=== PATIENT | male | born 1960 | race Caucasian/White ===

== ENCOUNTER 2016-09-22 12:41 | Emergency (ER) | payer OTHER ==
--- NOTE | 2016-09-22 14:27 | DIAGNOSTIC IMAGING REPORT ---
PROCEDURE: CT ABDOMEN/PELVIS W/O CONTRAST INDICATION: Left flank pain. TECHNIQUE: Noncontrast axial images with sagittal and coronal reformations. COMPARISON: Compared to limited abdominal ultrasound on 12/16/2012. FINDINGS: ABDOMEN: There is mild left hydronephrosis and hydroureter secondary to a 5 mm calculus located in the left distal ureter (1.5 cm above the ureteral vesicle junction). There are 4 mm and 0.5 mm nonobstructing calculi in the lower pole left kidney. There is a 2 mm nonobstructing calculus in the lower pole right kidney. Right kidney and ureter are otherwise normal. There is a 2 cm periumbilical hernia which contains intra-abdominal lipomatous tissue. Gallbladder, liver, spleen, pancreas, and aorta are normal. Bowel pattern is normal, including appendix. There are mild to moderate degenerative changes of the lumbar spine. PELVIS: Mild sigmoid diverticulosis, but no evidence of diverticulitis. Prostate is of normal size (4.5 cm). structures are normal. IMPRESSION: 1. There is mild left hydronephrosis and hydroureter secondary to a 5 mm left distal ureteral calculus. 2. There are 4 mm and 0.5 mm nonobstructing calculi in the lower pole left kidney. 3. There is a 2 mm nonobstructing calculus in the lower pole right kidney. 4. There is 2 cm periumbilical hernia which contains intra-abdominal lipomatous tissue. 5. Mild sigmoid diverticulosis, but no evidence of diverticulitis. 6. Findings discussed with JERAMIE Herrera. All CT scans at this facility use dose modulation, iterative reconstruction, and/or weight-based dosing when appropriate to reduce radiation dose to as low as reasonably achievable.
--- NOTE | 2016-09-22 15:13 | ED CLINICAL REPORT ---
Clinical Report - Physicians/Mid Levels [facility] [address] [place] [address] 09/22/2016 12:42 Patient: BEN ROBERTS Time Seen: 13:09; initial patient contact, initial documentation, patient care assumed. Arrived- By private vehicle. Historian- patient. HISTORY OF PRESENT ILLNESS Chief Complaint: RIGHT FLANK PAIN and TESTICULAR PAIN and URINARY RETENTION. This started about 3 days ago and is still present but is improving. The problem is described as severe. It was abrupt in onset and has been waxing/waning. No penile discharge, discomfort with urination, urinary frequency, genital lesion or urgency of urination. No Chicas catheter problem, inguinal swelling or problem with the foreskin. The patient has had moderate testicular pain, involving the left testicle. He has been unable to void, and voiding small amounts. The patient has had unprotected intercourse with a single partner. Sexual history is noncontributory. 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 Similar symptoms previously: Chronically, milder. ( has had issues with urinary retention for approx x10 years or more, pain feels like when he had kidney stone). Recent medical care: Not recently seen/assessed. REVIEW OF SYSTEMS No fever, hematuria, abdominal pain, vomiting or diarrhea. No chest pain or difficulty breathing. He has had flank pain. All systems otherwise negative, except as recorded above. PAST HISTORY See nurses notes. ( PROBLEMS: Nephrolithiasis. Diabetes Mellitus. Hypertension. Immunizations. --13:02 Fransisco Gatica R.N. Cellulitis. --13:04 Fransisco Gatica R.N. ADDITIONAL SURGERIES: Vasectomy. --13:02 Fransisco Gatica R.N.). SOCIAL HISTORY Never smoker. No alcohol use or drug use. No recent travel. Is a local resident. FAMILY HISTORY Negative. ADDITIONAL NOTES The nursing notes have been reviewed with agreement regarding the chief complaint, HPI, ROS, PMH and patient medications and allergies. PHYSICAL EXAM Vital Signs: 09/22/2016 12:52 BP: 142/84. HR: 92. RR: 18. O2 saturation: 98%. Temp: 98.8 F. Pain level now: 05/26. Have been reviewed as normal and appear to be correct. Appearance: Alert. Oriented X3. No acute distress. ENT: Normal external inspection. Pharynx normal. Neck: Neck supple. CVS: Heart sounds normal. Respiratory: No respiratory distress. Breath sounds normal. Abdomen: Soft and nontender. Bowel sounds normal. No organomegaly. Small mass present in the periumbilical area (very small umbilical hernia present, chronic x 10 years plus). No tender or pulsatile mass present. No guarding present. Mildly obese. Mass present. Back: Normal external inspection. : Normal genitalia. Testes descended. (tree trimmer per rn fiorella, no obvious signs of swelling, but pt stating his L teste was bigger than normal). Skin: Skin warm and dry. Normal skin color. No rash. Normal skin turgor. Extremities: Extremities exhibit normal ROM. No lower extremity edema. Neuro: Oriented X 3. No motor deficit. No sensory deficit. LABS, X-RAYS, AND EKG Abdominal CT: . IMPRESSION: 1. There is mild left hydronephrosis and hydroureter secondary to a 5 mm left distal ureteral calculus. 2. There are 4 mm and 0.5 mm nonobstructing calculi in the lower pole left kidney. 3. There is a 2 mm nonobstructing calculus in the lower pole right kidney. 4. There is 2 cm periumbilical hernia which contains intra-abdominal lipomatous tissue. 5. Mild sigmoid diverticulosis, but no evidence of diverticulitis. 6. Findings discussed with JERAMIE Herrera. All CT scans at this facility use dose modulation, iterative reconstruction, and/or weight-based dosing when appropriate to reduce radiation dose to as low as reasonably achievable. Electronically Final signed by:Héctor Carlos MD 09/22/2016 2:22:09 PM. The study was interpreted by the radiologist and discussed with the radiologist. Interpretation time: 3675. Testicular Scan: Normal study. Normal. (per verbal report by Bloglovin Leonides). Interpretation time: 2660. Laboratory Tests: UA-Culture if indicated: (DELFIN: 09/22/2016 13:02) ( MsgRcvd 09/22/2016 13:35) Final results Test Result Flag Units (Reference) URINE COLOR ORANGE URINE APPEARANCE CLEAR URINE GLUCOSE TRACE (NEGATIVE) URINE BILIRUBIN Test not performed (NEGATIVE) UNABLE TO REPORT DUE TO URINE COLOR INTERFERENCE URINE KETONE Test not performed (NEGATIVE) UNABLE TO REPORT DUE TO URINE COLOR INTERFERENCE URINE SPECIFIC GRAVITY 1.025 (1.010-1.030) URINE PH Test not performed (5.0-8.0) UNABLE TO REPORT DUE TO URINE COLOR INTERFERENCE URINE PROTEIN Test not performed (NEGATIVE) UNABLE TO REPORT DUE TO URINE COLOR INTERFERENCE URINE UROBILINOGEN Test not performed EU/dL (0.2-1.0) UNABLE TO REPORT DUE TO URINE COLOR INTERFERENCE URINE NITRITE Test not performed (NEGATIVE) UNABLE TO REPORT DUE TO URINE COLOR INTERFERENCE URINE BLOOD 2+ (NEGATIVE) URINE LEUK ESTERASE NEGATIVE (NEGATIVE) URINE RBC 10-25 rbc/hpf (0-1) URINE WBC 3-5 wbc/hpf (0-1) URINE EPITHELIAL CELLS 0-1 EPI/hpf (0-5) URINE BACTERIA NONE SEEN (NONE SEEN) URINE COMMENT CULT NOT INDICATED URINE CULTURES ARE SET-UP BASED ON THE FOLLOWING CRITERIA:POSITIVE NITRITEPOSITIVE LEUKOCYTE ESTERASEGREATER THAN 10 WHITE BLOOD CELLSMODERATE (2+) OR GREATER BACTERIA CBC w Diff: (DELFIN: 09/22/2016 13:40) ( LagRcvd 09/22/2016 14:05) Final results Test Result Flag Units (Reference) WHITE BLOOD COUNT 9.6 K/uL (4.5-11.5) RED BLOOD COUNT 4.43 L M/uL (4.50-5.90) HEMOGLOBIN 13.4 L gm/dL (13.5-17.5) HEMATOCRIT 39.6 L % (41.0-53.0) MEAN CELL VOLUME 89 fL (80-100) MEAN CORPUSCULAR HGB 30 pg (26-34) MEAN CORPUSCULAR HGB CONC 34 g/dL (31-37) RED CELL DISTRIBUTION WIDTH 12.8 % (11.6-14.8) PLATELET COUNT 202 K/uL (150-400) NEUTROPHIL % 72.9 % (50-75) LYMPH % 17.2 L % (25-40) MONO % 7.4 % (3-14) EOSINOPHIL % 2.3 % (0-4) BASOPHIL % 0.2 % (0-2) CMP: (DELFIN: 09/22/2016 13:40) ( MsgRcvd 09/22/2016 14:07) Final results Test Result Flag Units (Reference) GLUCOSE 188 H mg/dL (70-110) BUN 16 mg/dL (7-18) CREATININE 0.9 mg/dL (0.6-1.3) Estimated GFR >60 mL/min Estimated GFR- >60 mL/min Note: Persistent reduction over 3 months in eGFR<60 mL/min/1.73 m2 defines CKD. Patients with eGFR values>=60 mL/min/1.73 m2 may also have CKD if evidence ofpersistent proteinuria. Additional information may be foundat www.[email or web address].org. SODIUM 140 mmol/L (136-145) POTASSIUM 3.5 mmol/L (3.5-5.1) CHLORIDE 102 mmol/L (98-107) CARBON DIOXIDE 27 mmol/L (21-32) CALCIUM 9.0 mg/dL (8.5-10.1) TOTAL PROTEIN 8.2 g/dL (6.4-8.2) ALBUMIN 3.8 g/dL (3.3-5.0) BILIRUBIN, TOTAL 0.5 mg/dL (0.0-1.0) ALKALINE PHOSPHATASE 97 U/L (46-116) AST (SGOT) 22 U/L (15-37) ALT (SGPT) 34 U/L (12-78) . PROGRESS AND PROCEDURES Course of Care: nurse reporting bladder scan only showed approx 70ml of urine. 09/22/2016 13:49 BP: 120/80. HR: 86. RR: 14. O2 saturation: 97%. Temp: 98.4 F. Pain level now: 05/26. Vital Signs: have been reviewed as normal and appear to be correct. Patient and spouse counseled in person regarding the patient's stable condition, test results and diagnosis. 1450. Differential Diagnosis: I considered bacterial epididymitis, orchitis, scrotal abscess, prostatitis, urinary tract infection, inflammatory etiology, hydrocele, testicular torsion and ureterolithiasis etiology as a possible cause of testicular pain in this patient. This is a partial list of diagnoses considered. Above considerations are based on history, physical exam, reassessment, laboratory data and other information. Differential diagnosis was discussed with patient and patient's spouse. Disposition: Discharged home in good and improved condition (15:13). Condition: good and stable. CLINICAL IMPRESSION Ureterolithiasis (multiple stones) in the right kidney and left ureter and kidney with renal colic, hydronephrosis, urinary tract infection and hematuria. No acute pyelonephritis. Acute urinary tract infection with cystitis. No pyelonephritis or hematuria. Not associated with indwelling catheter or obstruction. INSTRUCTIONS Drink plenty of fluids for the next 24 hours until better. (strain all urine). Warnings: GENERAL WARNINGS: Return or contact your physician immediately if your condition worsens or changes unexpectedly, if not improving as expected, or if other problems arise. Specifically return if problem worsens. Prescription Medications: Zofran 4 mg: Take 1 orally every six hours as needed for nausea/vomiting. Dispense ten (10). No refills. Substitution is permissible. Cipro 500 mg: take 1 tab orally every 12 hours for 10 days. Dispense twenty (20). No refills. Substitution is permissible. [place] 5 mg / 325 mg tablets: take 1 to 2 orally every 6 hours as needed for pain. Dispense fifteen (15). No refills. Substitution is permissible. Toradol 10 mg tablets: Take 1 tablet orally every 6 hours as needed. Dispense fifteen (15). No refills. Substitution is permissible. Flomax 0.4 mg: take 1 orally every 24 hours. Dispense fifteen (15). No refills. Substitution is permissible. Follow-up: Follow up with your doctor Roman in about two days even if well. Call for an appointment. Summary of care provided to patient. Understanding of the discharge instructions verbalized by patient. Follow-up with: Virgil Moya MD, Urology, , [address], , [facility] [address]; Tristan Sams MD, Urology, , [address] [facility] [address] Follow up in about two days as needed. Call for an appointment. Summary of care provided to patient. (Electronically signed by Marilin Mclean A.R.N.P. 09/22/2016 17:18)
--- NOTE | 2016-09-22 15:13 | ED NURSING NOTES ---
Clinical Report - Nurses [facility] [address] [place] [address] 09/22/2016 12:42 Patient: BEN ROBERTS TRIAGE Triage time 12:52 Sep 22 2016. Acuity: LEVEL 3. Chief Complaint: TESTICULAR PAIN and (Urinary Retention). Alert. LEONIDES COMA SCORE: Leonides Coma Scale: 15- eyes open spontaneously (4); best verbal response- oriented x 4 (5); best motor response- obeys commands (6). --13:06 Fransisco Gatica R.N. 12:52 09/22/16. BP: 142/84. HR: 92. RR: 18. O2 saturation: 98%. Temp: 98.8 F (oral). Pain level now: 05/26. --13:06 Fransisco Gatica R.N. Weight: 115.6 kg stated. Height/Length: 73 inches Per Patient. BMI: 33.6. --12:58 Fransisco Gatica R.N. Medications Azo-Standard Oral 2 tablets, 3x a day. --12:53 Fransisco Gatica R.N. Vicodin Oral 5 mg x 2 (Left over from a tooth extraction). --12:55 Fransisco Gatica R.N. Allergies No Known Drug Allergy. --12:54 Fransisco Gatica R.N. Medication/allergy information source: the patient and patient's spouse. --13:06 Fransisco Gatica R.N. History Arrived by private vehicle. Historian: patient. Accompanied by family. Primary physician (Roman). ( (R) Flank Pain associated with urinary retention and slight testicular pain.). Onset. (about 3 days ago, but the urinary retention has been going on for months.). Treatment INVENTORY CLERK: (AZo). PAST MEDICAL HX: Immunizations: status is unknown. SOCIAL HX: Never smoker. No alcohol use or drug use. No infectious disease exposure. ABUSE ASSESSMENT: No report of abuse. FALL RISK ASSESSMENT: Fall risk assessment completed. No fall risk identified. NUTRITIONAL RISK ASSESSMENT: The nutritional risk assessment revealed no deficiencies. FUNCTIONAL ASSESSMENT: Functional assessment: no impairments noted. LEARNING NEEDS ASSESSMENT: The learning needs assessment revealed no barriers. SKIN INTEGRITY ASSESSMENT: Skin integrity risk assessment completed. No skin integrity risk identified. --13:06 Fransisco Gatica R.N. PROBLEMS: Nephrolithiasis. Diabetes Mellitus. Hypertension. Immunizations. --13:02 Fransisco Gatica R.N. Cellulitis. --13:04 Fransisco Gatica R.N. ADDITIONAL SURGERIES: Vasectomy. --13:02 Fransisco Gatica R.N. Interventions ID band on patient. To treatment room. --13:06 Fransisco Gatica R.N. PHYSICAL ASSESSMENT Ambulatory to room. GENERAL / NEURO / PSYCH: Alert. Oriented X 4. Appears in pain. HEENT: Mucous membranes are pink. RESPIRATORY: Respirations not labored. CVS: Normal heart rate and rhythm. GI / : Abdomen soft. Bowel sounds within normal limits. SKIN: Skin is warm and dry. --13:07 Fransisco Gatica R.N. NURSING PROGRESS NOTES Oxygen administered. Monitoring of patient in place. Patient gowned. Reassurance given to the patient. Patient identifiers checked. Call light placed in reach. Side rails up x 1. Bed placed in lowest position. Brakes of bed on. Patient ready for evaluation- chart flagged and ED physician notified. --13:08 Fransisco Gatica R.N. 13:08 09/22/16. Patient ID band checked for patient name, birthdate and medical record number: patient confirmed. Instructions provided to collect clean catch urine and patient verbalized understanding. Clean catch urine collected with return of orange-colored clear urine; odor is normal; sample sent to lab for urinalysis and culture. Specimen labeled in the presence of the patient. --13:08 Fransisco Gatica R.N. 13:13 09/22/16. ( Blood Sugar 171). --13:13 Maicol Lord R.N. 13:14 09/22/16. Tape Rules Printing Machine Operator provided for the genital exam by the physician. --13:14 Maicol Lord R.N. 13:33 09/22/2016 Site #1 started via IV in the right antecubital space with an 20g angiocath; one attempt. Blood drawn: rainbow set. Labeled in the presence of the patient and sent to the lab. Saline lock flushed with 10 mL saline (placed by Kavitha CARMONA). --13:39 Jazlyn Lim R.N. 13:40 09/22/2016 Started bag #1 1000 mL IV Fluids IV NS (Saline); at 1000 mL/hr over 1 hour(s) via site #1 via dial-a-flow. Allergies verified and confirmed 5 rights. IV patency established. IV site checked: no pain, redness, or swelling. IV flushed thoroughly pre- and post-medication administration. --13:40 Kavitha Melton R.N. ( urine bladder scan multiple areas of abdomen and pelvis region, 71mls). --13:40 Jazlyn Lim R.N. 15:17 09/22/2016 IV Fluids IV NS Discontinued: bag #1 infused. Total amount infused: 1000 mL. IV patency established. IV site checked: no pain, redness, or swelling. IV flushed thoroughly. --15:27 Maicol Lord R.N. DISPOSITION / DISCHARGE No learning barriers present. Discharge instructions provided and reviewed with the patient. Reviewed medication(s) side effects, dosing and course information. Prescription(s) given to the patient. Work note given. Patient verbalized understanding. Written instructions provided in Fijian. The patient was discharged by the nurse practitioner. He was discharged home. He left the Emergency Department ambulatory and via private vehicle. Patient driving. ( pt dc home only by this RN, pt speaks full sentences, clears oral secretions, given rx and f/u.). --13:51 Jazlyn Lim R.N. 13:49 09/22/16. BP: 120/80. HR: 86. RR: 14. O2 saturation: 97%. Temp: 98.4 F. Pain level now: 05/26. --13:51 Jazlyn Lim R.N. Departure time: 1349. --13:52 Jazlyn Lim R.N. 15:32 09/22/2016 Site #1 removed upon discharge. Catheter intact. --15:32 Maicol Lord R.N. 15:33 05/09/17. Condition at departure: improved. The goals identified in the patient's plan of care were met. ( Pt educated about how to strain to urine and provide stone to PCP and also follow up with urology/PCP). No learning barriers present. Discharge instructions provided and reviewed with the patient and spouse. Reviewed warnings. Reviewed medication(s). Treatments reviewed. Patient and spouse verbalized understanding. Written instructions provided in Fijian. The patient was discharged by the nurse practitioner. He was discharged home and accompanied by family. He left the Emergency Department ambulatory and via private vehicle. Family member driving. FALL RISK ASSESSMENT: Fall risk assessment completed. No fall risk identified. --15:33 Maicol Lord R.N. 15:32 09/22/16. BP: 118/74. HR: 81. RR: 15. O2 saturation: 100% on room air. Temp: 97.9 F (oral). --15:33 Maicol Lord R.N. 15:33 09/22/16. Departure time: 15:33. --15:33 Maicol Lord R.N. Locked/Released at 09/22/2016 15:50 by Maicol Lord R.N.
--- NOTE | 2016-09-22 15:13 | ED ORDER SUMMARY ---
..... Patient: BEN ROBERTS OrderSheet [facility] VisitID: [id number] [address] [place] [address] 56y, M Registration Date/Time: 09/22/2016 ORDER SHEET Weight: 115.6 kg (stated) Allergies: No Known Drug Allergy GENERAL ORDERS: UA-Culture if indicated Urgent (13:07 09/22/2016 JRomanelli R.N. verbal order read back to HBivens A.R.N.P.) (13:07 JRomanelli R.N.) POC Glucose (13:14 09/22/2016 JBoardley R.N. per protocol) (13:14 JBoardley R.N.) CT Abd/Pel wo Cont Urgent (13:18 09/22/2016 HBivens A.R.N.P.) (Ack 13:44 KHoerner) (13:57 KHoerner) US Scrotum/Testicular Urgent (13:18 09/22/2016 HBivens A.R.N.P.) (Ack 13:44 KHoerner) (15:27 JBoardley R.N.) CBC w Diff Urgent (13:18 09/22/2016 HBivens A.R.N.P.) (13:39 EHassan R.N.) CMP Urgent (13:18 09/22/2016 HBivens A.R.N.P.) (13:39 EHassan R.N.) Bladder Scan (13:23 09/22/2016 HBivens A.R.N.P.) (Ack 13:24 JRomanelli R.N.) (15:27 JBoardley R.N.) MEDICATION ORDERS: IV FLUIDS: IV NS : initial bolus 1000 mL (1000 mL/hr), then none - (NOW) (13:18 09/22/2016 HBivens A.R.N.P.) (Ack 13:24 JRomanelli R.N.) (13:40 EHassan R.N.) IV Saline Lock (13:18 09/22/2016 HBivens A.R.N.P.) (Ack 13:24 JRomanelli R.N.) (13:40 Gabriel Abrams) ORDER SHEET NOTES: [Electronically signed by Maicol Lord R.N. (15:50 09/22/2016)] [Electronically signed by Marilin Mclean (17:18 09/22/2016)] [Electronically locked/signed by Maicol Lord R.N. (15:50 09/22/2016)]
--- NOTE | 2016-09-22 15:13 | ED CLINICAL REPORT ---
Clinical Report - Physicians/Mid Levels [facility] [address] [place] [address] 09/22/2016 12:42 Patient: BEN ROBERTS Time Seen: 13:09; initial patient contact, initial documentation, patient care assumed. Arrived- By private vehicle. Historian- patient. HISTORY OF PRESENT ILLNESS Chief Complaint: RIGHT FLANK PAIN and TESTICULAR PAIN and URINARY RETENTION. This started about 3 days ago and is still present but is improving. The problem is described as severe. It was abrupt in onset and has been waxing/waning. No penile discharge, discomfort with urination, urinary frequency, genital lesion or urgency of urination. No [place] catheter problem, inguinal swelling or problem with the foreskin. The patient has had moderate testicular pain, involving the left testicle. He has been unable to void, and voiding small amounts. The patient has had unprotected intercourse with a single partner. Sexual history is noncontributory. (pain better now, took x2 [place] [employer]). Similar symptoms previously: Chronically, milder. ( has had issues with urinary retention for approx x10 years or more, pain feels like when he had kidney stone). Recent medical care: Not recently seen/assessed. REVIEW OF SYSTEMS No fever, hematuria, abdominal pain, vomiting or diarrhea. No chest pain or difficulty breathing. He has had flank pain. All systems otherwise negative, except as recorded above. PAST HISTORY See nurses notes. ( PROBLEMS: Nephrolithiasis. Diabetes Mellitus. Hypertension. Immunizations. --13:02 Fransisco Gatica R.N. Cellulitis. --13:04 Fransisco Gatica R.N. ADDITIONAL SURGERIES: Vasectomy. --13:02 Fransisco Gatica R.N.). SOCIAL HISTORY Never smoker. No alcohol use or drug use. No recent travel. Is a local resident. FAMILY HISTORY Negative. ADDITIONAL NOTES The nursing notes have been reviewed with agreement regarding the chief complaint, HPI, ROS, PMH and patient medications and allergies. PHYSICAL EXAM Vital Signs: 09/22/2016 12:52 BP: 142/84. HR: 92. RR: 18. O2 saturation: 98%. Temp: 98.8 F. Pain level now: 05/26. Have been reviewed as normal and appear to be correct. Appearance: Alert. Oriented X3. No acute distress. ENT: Normal external inspection. Pharynx normal. Neck: Neck supple. CVS: Heart sounds normal. Respiratory: No respiratory distress. Breath sounds normal. Abdomen: Soft and nontender. Bowel sounds normal. No organomegaly. Small mass present in the periumbilical area (very small umbilical hernia present, chronic x 10 years plus). No tender or pulsatile mass present. No guarding present. Mildly obese. Mass present. Back: Normal external inspection. : Normal genitalia. Testes descended. (test baker per rn fiorella, no obvious signs of swelling, but pt stating his L teste was bigger than normal). Skin: Skin warm and dry. Normal skin color. No rash. Normal skin turgor. Extremities: Extremities exhibit normal ROM. No lower extremity edema. Neuro: Oriented X 3. No motor deficit. No sensory deficit. LABS, X-RAYS, AND EKG Abdominal CT: . IMPRESSION: 1. There is mild left hydronephrosis and hydroureter secondary to a 5 mm left distal ureteral calculus. 2. There are 4 mm and 0.5 mm nonobstructing calculi in the lower pole left kidney. 3. There is a 2 mm nonobstructing calculus in the lower pole right kidney. 4. There is 2 cm periumbilical hernia which contains intra-abdominal lipomatous tissue. 5. Mild sigmoid diverticulosis, but no evidence of diverticulitis. 6. Findings discussed with JERAMIE Herrera. All CT scans at this facility use dose modulation, iterative reconstruction, and/or weight-based dosing when appropriate to reduce radiation dose to as low as reasonably achievable. Electronically Final signed by:Héctor Carlos MD 09/22/2016 2:22:09 PM. The study was interpreted by the radiologist and discussed with the radiologist. Interpretation time: 6525. Testicular Scan: Normal study. Normal. (per verbal report by [facility]). Interpretation time: 5150. Laboratory Tests: UA-Culture if indicated: (DELFIN: 09/22/2016 13:02) ( MsgRcvd 09/22/2016 13:35) Final results Test Result Flag Units (Reference) URINE COLOR ORANGE URINE APPEARANCE CLEAR URINE GLUCOSE TRACE (NEGATIVE) URINE BILIRUBIN Test not performed (NEGATIVE) UNABLE TO REPORT DUE TO URINE COLOR INTERFERENCE URINE KETONE Test not performed (NEGATIVE) UNABLE TO REPORT DUE TO URINE COLOR INTERFERENCE URINE SPECIFIC GRAVITY 1.025 (1.010-1.030) URINE PH Test not performed (5.0-8.0) UNABLE TO REPORT DUE TO URINE COLOR INTERFERENCE URINE PROTEIN Test not performed (NEGATIVE) UNABLE TO REPORT DUE TO URINE COLOR INTERFERENCE URINE UROBILINOGEN Test not performed EU/dL (0.2-1.0) UNABLE TO REPORT DUE TO URINE COLOR INTERFERENCE URINE NITRITE Test not performed (NEGATIVE) UNABLE TO REPORT DUE TO URINE COLOR INTERFERENCE URINE BLOOD 2+ (NEGATIVE) URINE LEUK ESTERASE NEGATIVE (NEGATIVE) URINE RBC 10-25 rbc/hpf (0-1) URINE WBC 3-5 wbc/hpf (0-1) URINE EPITHELIAL CELLS 0-1 EPI/hpf (0-5) URINE BACTERIA NONE SEEN (NONE SEEN) URINE COMMENT CULT NOT INDICATED URINE CULTURES ARE SET-UP BASED ON THE FOLLOWING CRITERIA:POSITIVE NITRITEPOSITIVE LEUKOCYTE ESTERASEGREATER THAN 10 WHITE BLOOD CELLSMODERATE (2+) OR GREATER BACTERIA CBC w Diff: (DELFIN: 09/22/2016 13:40) ( NmgRcvd 09/22/2016 14:05) Final results Test Result Flag Units (Reference) WHITE BLOOD COUNT 9.6 K/uL (4.5-11.5) RED BLOOD COUNT 4.43 L M/uL (4.50-5.90) HEMOGLOBIN 13.4 L gm/dL (13.5-17.5) HEMATOCRIT 39.6 L % (41.0-53.0) MEAN CELL VOLUME 89 fL (80-100) MEAN CORPUSCULAR HGB 30 pg (26-34) MEAN CORPUSCULAR HGB CONC 34 g/dL (31-37) RED CELL DISTRIBUTION WIDTH 12.8 % (11.6-14.8) PLATELET COUNT 202 K/uL (150-400) NEUTROPHIL % 72.9 % (50-75) LYMPH % 17.2 L % (25-40) MONO % 7.4 % (3-14) EOSINOPHIL % 2.3 % (0-4) BASOPHIL % 0.2 % (0-2) CMP: (DELFIN: 09/22/2016 13:40) ( MsgRcvd 09/22/2016 14:07) Final results Test Result Flag Units (Reference) GLUCOSE 188 H mg/dL (70-110) BUN 16 mg/dL (7-18) CREATININE 0.9 mg/dL (0.6-1.3) Estimated GFR >60 mL/min Estimated GFR- >60 mL/min Note: Persistent reduction over 3 months in eGFR<60 mL/min/1.73 m2 defines CKD. Patients with eGFR values>=60 mL/min/1.73 m2 may also have CKD if evidence ofpersistent proteinuria. Additional information may be foundat www.kidney.org. SODIUM 140 mmol/L (136-145) POTASSIUM 3.5 mmol/L (3.5-5.1) CHLORIDE 102 mmol/L (98-107) CARBON DIOXIDE 27 mmol/L (21-32) CALCIUM 9.0 mg/dL (8.5-10.1) TOTAL PROTEIN 8.2 g/dL (6.4-8.2) ALBUMIN 3.8 g/dL (3.3-5.0) BILIRUBIN, TOTAL 0.5 mg/dL (0.0-1.0) ALKALINE PHOSPHATASE 97 U/L (46-116) AST (SGOT) 22 U/L (15-37) ALT (SGPT) 34 U/L (12-78) . PROGRESS AND PROCEDURES Course of Care: nurse reporting bladder scan only showed approx 70ml of urine. 09/22/2016 13:49 BP: 120/80. HR: 86. RR: 14. O2 saturation: 97%. Temp: 98.4 F. Pain level now: 05/26. Vital Signs: have been reviewed as normal and appear to be correct. Patient and spouse counseled in person regarding the patient's stable condition, test results and diagnosis. 1450. Differential Diagnosis: I considered bacterial epididymitis, orchitis, scrotal abscess, prostatitis, urinary tract infection, inflammatory etiology, hydrocele, testicular torsion and ureterolithiasis etiology as a possible cause of testicular pain in this patient. This is a partial list of diagnoses considered. Above considerations are based on history, physical exam, reassessment, laboratory data and other information. Differential diagnosis was discussed with patient and patient's spouse. Disposition: Discharged home in good and improved condition (15:13). Condition: good and stable. CLINICAL IMPRESSION Ureterolithiasis (multiple stones) in the right kidney and left ureter and kidney with renal colic, hydronephrosis, urinary tract infection and hematuria. No acute pyelonephritis. Acute urinary tract infection with cystitis. No pyelonephritis or hematuria. Not associated with indwelling catheter or obstruction. INSTRUCTIONS Drink plenty of fluids for the next 24 hours until better. (strain all urine). Warnings: GENERAL WARNINGS: Return or contact your physician immediately if your condition worsens or changes unexpectedly, if not improving as expected, or if other problems arise. Specifically return if problem worsens. Prescription Medications: Zofran 4 mg: Take 1 orally every six hours as needed for nausea/vomiting. Dispense ten (10). No refills. Substitution is permissible. Cipro 500 mg: take 1 tab orally every 12 hours for 10 days. Dispense twenty (20). No refills. Substitution is permissible. [place] 5 mg / 325 mg tablets: take 1 to 2 orally every 6 hours as needed for pain. Dispense fifteen (15). No refills. Substitution is permissible. Toradol 10 mg tablets: Take 1 tablet orally every 6 hours as needed. Dispense fifteen (15). No refills. Substitution is permissible. Flomax 0.4 mg: take 1 orally every 24 hours. Dispense fifteen (15). No refills. Substitution is permissible. Follow-up: Follow up with your doctor Roman in about two days even if well. Call for an appointment. Summary of care provided to patient. Understanding of the discharge instructions verbalized by patient. Follow-up with: Virgil Moya MD, Urology, , [address], , [facility] [address]; Tristan Sams MD, Urology, , [address] [facility] [address] Follow up in about two days as needed. Call for an appointment. Summary of care provided to patient. (Electronically signed by Marilin Mclean A.R.N.P. 09/22/2016 17:18)
--- NOTE | 2016-09-22 15:13 | ED ORDER SUMMARY ---
..... Patient: BEN ROBERTS OrderSheet [facility] VisitID: [id number] [address] [place] [address] 56y, M Registration Date/Time: 09/22/2016 ORDER SHEET Weight: 115.6 kg (stated) Allergies: No Known Drug Allergy GENERAL ORDERS: UA-Culture if indicated Urgent (13:07 09/22/2016 JRomanelli R.N. verbal order read back to HBivens A.R.N.P.) (13:07 JRomanelli R.N.) POC Glucose (13:14 09/22/2016 JBoardley R.N. per protocol) (13:14 JBoardley R.N.) CT Abd/Pel wo Cont Urgent (13:18 09/22/2016 HBivens A.R.N.P.) (Ack 13:44 KHoerner) (13:57 KHoerner) US Scrotum/Testicular Urgent (13:18 09/22/2016 HBivens A.R.N.P.) (Ack 13:44 KHoerner) (15:27 JBoardley R.N.) CBC w Diff Urgent (13:18 09/22/2016 HBivens A.R.N.P.) (13:39 EHassan R.N.) CMP Urgent (13:18 09/22/2016 HBivens A.R.N.P.) (13:39 EHassan R.N.) Bladder Scan (13:23 09/22/2016 HBivens A.R.N.P.) (Ack 13:24 JRomanelli R.N.) (15:27 JBoardley R.N.) MEDICATION ORDERS: IV FLUIDS: IV NS : initial bolus 1000 mL (1000 mL/hr), then none - (NOW) (13:18 09/22/2016 HBivens A.R.N.P.) (Ack 13:24 JRomanelli R.N.) (13:40 EHassan R.N.) IV Saline Lock (13:18 09/22/2016 HBivens A.R.N.P.) (Ack 13:24 JRomanelli R.N.) (13:40 Gabriel Abrams) ORDER SHEET NOTES: [Electronically signed by Maicol Lord R.N. (15:50 09/22/2016)] [Electronically signed by Marilin Mclean (17:18 09/22/2016)] [Electronically locked/signed by Maicol Lord R.N. (15:50 09/22/2016)]
--- NOTE | 2016-09-22 15:54 | DIAGNOSTIC IMAGING REPORT ---
PROCEDURE: US SCROTUM/TESTICLE INDICATION: SCROTAL SWELLING TECHNIQUE: Rebolledo scale and color Doppler sonographic images through the scrotum were obtained. COMPARISON: None. FINDINGS: RIGHT TESTICLE: Measures 4.5 x 3.2 x 2.6 cm. Normal echogenicity and vascularity. Small hydrocele. Normal epididymis. LEFT TESTICLE: Measures 4.3 x 3.1 x 2.4 cm. Normal echogenicity and vascularity. Small hydrocele. Normal epididymis. IMPRESSION: 1. Small bilateral hydroceles 2. Otherwise negative testicular ultrasound
--- NOTE | 2016-09-22 17:18 | ED MAR SUMMARY ---
..... Medication Administration Record [facility] [address] [place] [address] Patient: BEN ROBERTS Visit ID: [id number] 56y, M Weight: 115.6 kg Height/Length: 73 in BMI: 33.6 ALLERGIES: No Known Drug Allergy Start 13:40 09/22/2016 Kavitha Melton R.N., Stop 15:17 09/22/2016 Maicol Lord R.N. Medication Administered: IV NS (SALINE), Dose: IV Fluids over 1 hour(s), Rate: 1000 mL/hr, Dispensed: 1000 mL bag, Site: #1 right AC. Medication Ordered: IV NS : initial bolus 1000 mL (1000 mL/hr), then none - (NOW).
--- NOTE | 2016-09-22 17:18 | ED MED RECONCILIATION SUMMARY ---
Patient: BEN ROBERTS Medication Reconciliation Report [facility] VisitID: [id number] [address] [place] [address] 56y, M Registration Date/Time: 09/22/2016 Weight: 115.6 kg Height/Length: 73 in. BMI: 33.6 ALLERGIES: No Known Drug Allergy The patient's Home Medications are listed below: THE FOLLOWING MEDICATIONS NEED TO BE RECONCILED: Azo-Standard Oral 2 tablets, 3x a day Vicodin Oral 5 mg x 2, Left over from a tooth extraction The source(s) of the original Home Medication information: patient patient's spouse The following Medications were given to the patient in the Emergency Department: IV NS IV Fluids bolus 0, then 1000 mL/hr, administered: 09/22/2016 1:40:00 PM The following Medications were prescribed to the patient: Zofran 4 mg: Take 1 orally every six hours as needed for nausea/vomiting. Dispense ten (10). No refills. Substitution is permissible. -- Marilin Mclean A.R.N.P. Cipro 500 mg: take 1 tab orally every 12 hours for 10 days. Dispense twenty (20). No refills. Substitution is permissible. -- Marilin Mclean A.Michelle.N.P. [place] 5 mg / 325 mg tablets: take 1 to 2 orally every 6 hours as needed for pain. Dispense fifteen (15). No refills. Substitution is permissible. -- Marilin Mclean A.Michelle.N.P. Toradol 10 mg tablets: Take 1 tablet orally every 6 hours as needed. Dispense fifteen (15). No refills. Substitution is permissible. -- Marilin Mclean A.Michelle.N.P. Flomax 0.4 mg: take 1 orally every 24 hours. Dispense fifteen (15). No refills. Substitution is permissible. -- Marilin Mclean A.R.N.P.
--- NOTE | 2016-09-22 17:18 | ED DISCHARGE INSTRUCTIONS ---
Patient: BEN ROBERTS General Instructions [facility] VisitID: [id number] [address] [place] [address] 56y, M Registration Date/Time: 09/22/2016 Ureterolithiasis (multiple stones) in the right kidney and left ureter and kidney with renal colic, hydronephrosis, urinary tract infection and hematuria. No acute pyelonephritis. Acute urinary tract infection with cystitis. No pyelonephritis or hematuria. Not associated with indwelling catheter or obstruction. INSTRUCTIONS Drink plenty of fluids for the next 24 hours until better. (strain all urine). Warnings: GENERAL WARNINGS: Return or contact your physician immediately if your condition worsens or changes unexpectedly, if not improving as expected, or if other problems arise. Specifically return if problem worsens. Prescription Medications: Zofran 4 mg: Take 1 orally every six hours as needed for nausea/vomiting. Dispense ten (10). No refills. Substitution is permissible. Cipro 500 mg: take 1 tab orally every 12 hours for 10 days. Dispense twenty (20). No refills. Substitution is permissible. [place]ton 5 mg / 325 mg tablets: take 1 to 2 orally every 6 hours as needed for pain. Dispense fifteen (15). No refills. Substitution is permissible. Toradol 10 mg tablets: Take 1 tablet orally every 6 hours as needed. Dispense fifteen (15). No refills. Substitution is permissible. Flomax 0.4 mg: take 1 orally every 24 hours. Dispense fifteen (15). No refills. Substitution is permissible. Follow-up: Follow up with your doctor Roman in about two days even if well. Call for an appointment. Summary of care provided to patient. Understanding of the discharge instructions verbalized by patient. Follow-up with: iVrgil Moya MD, Urology, , [address] [address]; Tristan Sams MD, Urology, , [address] [address] Follow up in about two days as needed. Call for an appointment. Summary of care provided to patient. ADDITIONAL INFORMATION Bladder Infection,Male (Adult) A bladder infection ("cystitis" or "UTI") usually causes a constant urge to urinate, and a burning when passing urine. Urine may be cloudy, smelly or dark. There may be also be pain in the lower abdomen. Cystitis in males is not common. It may be caused by a partial blockage in the urinary system that keeps the bladder from emptying completely. This is most often related to an enlarged prostate gland. Home Care: Drink lots of fluids (at least 6-8 glasses a day). This will flush the bacteria out of your bladder. Avoid sexual intercourse until your symptoms are gone. Avoid caffeine, alcohol, and spicy foods. They could irritate the bladder. A bladder infection is treated with antibiotics. You may also be given Pyridium (generic - phenazopyridine) to reduce burning with urination. This will cause urine to become a bright orange color, which can stain clothing. Follow Up with your doctor or this facility if ALL symptoms have not cleared within five days. It is important to keep your follow up appointment to discuss with your doctor the need for further tests of the urinary tract. Get Prompt Medical Attention if any of the following occur: Fever of 100.4F (38C) or higher, or as directed by your healthcare provider No improvement by the third day of treatment Increasing back or abdominal pain Repeated vomiting; unable to keep medicine down Weakness, dizziness or fainting Kidney Stone (W/ Colic) The sharp cramping pain and nausea/vomiting that you have is due to a small stone which has formed in the kidney and is now passing down a narrow tube (ureter) on its way to your bladder. Once it reaches your bladder, the pain will stop. The stone may pass in your urine stream in one piece. [The size may be 1/16" to 1/4" (1-6mm)]. Or, the stone may also break up into con fragments which you may not even notice. Once you have had a kidney stone, you are at risk for developing another one in the future. Home Care: Drink plenty of fluids (at least 8 to 10 glasses of water a day). Most stones will pass on their own, but may take from a few hours to a few days. Sometimes the stone is too large to pass by itself and special methods will have to be used to remove the stone. Each time you urinate, do so in a jar. Pour the urine from the jar through the strainer and into the toilet. Continue doing this until 24 hours after your pain stops. By then, if there was a kidney stone, it should pass from your bladder. Some stones dissolve into sand-like particles and pass right through the strainer. In that case, you wont ever see a stone. Save any stone that you find in the strainer and bring it to your doctor for analysis. It may be possible to prevent certain types of stones from forming. Therefore, it is important to know what kind of stone you have. Try to stay as active as possible since this will help the stone pass. Do not stay in bed unless your pain prevents you from getting up. You may notice a red, pink or brown color to your urine. This is normal while passing a kidney stone. Follow Up with your doctor or return to this facility if the pain lasts more than 48 hours. Get Prompt Medical Attention if any of the following occur: Pain that is not controlled by the medicine given Repeated vomiting or unable to keep down fluids Weakness, dizziness or fainting Fever of 100.4F (38C) or higher, or as directed by your healthcare provider Passage of solid red or brown urine (can't see through it) or urine with lots of blood clots Unable to pass urine for 8 hours and increasing bladder pressure Ondansetron Oral disintegrating tablet What is this medicine? ONDANSETRON (on FRED se deborah) is used to treat nausea and vomiting caused by chemotherapy. It is also used to prevent or treat nausea and vomiting after surgery. How should I use this medicine? These tablets are made to dissolve in the mouth. Do not try to push the tablet through the foil backing. With dry hands, peel away the foil backing and gently remove the tablet. Place the tablet in the mouth and allow it to dissolve, then swallow. While you may take these tablets with water, it is not necessary to do so. Talk to your pipeline dispatcher regarding the use of this medicine in children. Special care may be needed. What side effects may I notice from receiving this medicine? Side effects that you should report to your doctor or health director of medicare as soon as possible: allergic reactions like skin rash, itching or hives, swelling of the face, lips, or tongue breathing problems dizziness fast or irregular heartbeat feeling faint or lightheaded, falls fever and chills swelling of the hands and feet tightness in the chest Side effects that usually do not require medical attention (report to your doctor or health director of medicare if they continue or are bothersome): constipation or diarrhea headache What may interact with this medicine? Do not take this medicine with any of the following medications: -apomorphine -cisapride -dofetilide -dronedarone -pimozide -thioridazine -ziprasidone This medicine may also interact with the following medications: -carbamazepine -phenytoin -rifampicin -tramadol -other medicines that prolong the QT interval (cause an abnormal heart rhythm) What if I miss a dose? If you miss a dose, take it as soon as you can. If it is almost time for your next dose, take only that dose. Do not take double or extra doses. Where should I keep my medicine? Keep out of the reach of children. Store between 2 and 30 degrees C (36 and 86 degrees F). Throw away any unused medicine after the expiration date. What should I tell my health care provider before I take this medicine? They need to know if you have any of these conditions: heart disease history of irregular heartbeat liver disease low levels of magnesium or potassium in the blood an unusual or allergic reaction to ondansetron, granisetron, other medicines, foods, dyes, or preservatives or trying to get breast-feeding What should I watch for while using this medicine? Check with your doctor or health director of medicare as soon as you can if you have any sign of an allergic reaction. Ciprofloxacin Hydrochloride Oral tablet What is this medicine? CIPROFLOXACIN (sip abdiel FLOX a sin) is a quinolone antibiotic. It is used to treat certain kinds of bacterial infections. It will not work for colds, flu, or other viral infections. How should I use this medicine? Take this medicine by mouth with a glass of water. Follow the directions on the prescription label. Take your medicine at regular intervals. Do not take your medicine more often than directed. Take all of your medicine as directed even if you think your are better. Do not skip doses or stop your medicine early. You can take this medicine with food or on an empty stomach. It can be taken with a meal that contains dairy or calcium, but do not take it alone with a dairy product, like milk or yogurt or calcium-fortified juice. A special MedGuide will be given to you by the pharmacist with each prescription and refill. Be sure to read this information carefully each time. Talk to your pipeline dispatcher regarding the use of this medicine in children. Special care may be needed. What side effects may I notice from receiving this medicine? Side effects that you should report to your doctor or health director of medicare as soon as possible: - allergic reactions like skin rash, itching or hives, swelling of the face, lips, or tongue - breathing problems - confusion, nightmares or hallucinations - feeling faint or lightheaded, falls - irregular heartbeat - joint, muscle or tendon pain or swelling - pain or trouble passing urine -persistent headache with or without blurred vision - redness, blistering, peeling or loosening of the skin, including inside the mouth - seizure - unusual pain, numbness, tingling, or weakness Side effects that usually do not require medical attention (report to your doctor or health director of medicare if they continue or are bothersome): - diarrhea - nausea or stomach upset - white patches or sores in the mouth What may interact with this medicine? Do not take this medicine with any of the following medications: cisapride droperidol terfenadine tizanidine This medicine may also interact with the following medications: antacids caffeine cyclosporin didanosine (ddI) buffered tablets or powder medicines for diabetes medicines for inflammation like ibuprofen, naproxen methotrexate multivitamins omeprazole phenytoin probenecid sucralfate theophylline warfarin What if I miss a dose? If you miss a dose, take it as soon as you can. If it is almost time for your next dose, take only that dose. Do not take double or extra doses. Where should I keep my medicine? Keep out of the reach of children. Store at room temperature below 30 degrees C (86 degrees F). Keep container tightly closed. Throw away any unused medicine after the expiration date. What should I tell my health care provider before I take this medicine? They need to know if you have any of these conditions: -bone problems -cerebral disease -joint problems -irregular heartbeat -kidney disease -liver disease -myasthenia gravis -seizure disorder -tendon problems -an unusual or allergic reaction to ciprofloxacin, other antibiotics or medicines, foods, dyes, or preservatives - or trying to get -breast-feeding What should I watch for while using this medicine? Tell your doctor or health director of medicare if your symptoms do not improve. Do not treat diarrhea with over the counter products. Contact your doctor if you have diarrhea that lasts more than 2 days or if it is severe and watery. You may get drowsy or dizzy. Do not drive, use machinery, or do anything that needs mental alertness until you know how this medicine affects you. Do not stand or sit up quickly, especially if you are an older patient. This reduces the risk of dizzy or fainting spells. This medicine can make you more sensitive to the sun. Keep out of the sun. If you cannot avoid being in the sun, wear protective clothing and use sunscreen. Do not use sun lamps or tanning beds/booths. Avoid antacids, aluminum, calcium, iron, magnesium, and zinc products for 6 hours before and 2 hours after taking a dose of this medicine. Hydrocodone Bitartrate, Acetaminophen Oral tablet What is this medicine? ACETAMINOPHEN; HYDROCODONE (a set a NADIR cherri fen; ana droe KOE done) is a pain reliever. It is used to treat mild to moderate pain. How should I use this medicine? Take this medicine by mouth. Swallow it with a full glass of water. Follow the directions on the prescription label. If the medicine upsets your stomach, take the medicine with food or milk. Do not take more than you are told to take. Talk to your pipeline dispatcher regarding the use of this medicine in children. This medicine is not approved for use in children. What side effects may I notice from receiving this medicine? Side effects that you should report to your doctor or health director of medicare as soon as possible: allergic reactions like skin rash, itching or hives, swelling of the face, lips, or tongue breathing problems confusion feeling faint or lightheaded, falls stomach pain yellowing of the eyes or skin Side effects that usually do not require medical attention (report to your doctor or health director of medicare if they continue or are bothersome): nausea, vomiting stomach upset What may interact with this medicine? alcohol antihistamines isoniazid medicines for depression, anxiety, or psychotic disturbances medicines for sleep muscle relaxants naltrexone narcotic medicines (opiates) for pain phenobarbital ritonavir tramadol What if I miss a dose? If you miss a dose, take it as soon as you can. If it is almost time for your next dose, take only that dose. Do not take double or extra doses. Where should I keep my medicine? Keep out of the reach of children. This medicine can be abused. Keep your medicine in a safe place to protect it from theft. Do not share this medicine with anyone. Selling or giving away this medicine is dangerous and against the law. Store at room temperature between 15 and 30 degrees C (59 and 86 degrees F). Protect from light. Keep container tightly closed. Throw away any unused medicine after the expiration date. Discard unused medicine and used packaging carefully. Pets and children can be harmed if they find used or lost packages. What should I tell my health care provider before I take this medicine? They need to know if you have any of these conditions: brain tumor Crohn's disease, inflammatory bowel disease, or ulcerative colitis drink more than 3 alcohol-containing drinks per day drug abuse or addiction head injury heart or circulation problems kidney disease or problems going to the bathroom liver disease lung disease, asthma, or breathing problems an unusual or allergic reaction to acetaminophen, hydrocodone, other opioid analgesics, other medicines, foods, dyes, or preservatives or trying to get breast-feeding What should I watch for while using this medicine? Tell your doctor or health director of medicare if your pain does not go away, if it gets worse, or if you have new or a different type of pain. You may develop tolerance to the medicine. Tolerance means that you will need a higher dose of the medicine for pain relief. Tolerance is normal and is expected if you take the medicine for a long time. Do not suddenly stop taking your medicine because you may develop a severe reaction. Your body becomes used to the medicine. This does NOT mean you are addicted. Addiction is a behavior related to getting and using a drug for a non-medical reason. If you have pain, you have a medical reason to take pain medicine. Your doctor will tell you how much medicine to take. If your doctor wants you to stop the medicine, the dose will be slowly lowered over time to avoid any side effects. You may get drowsy or dizzy when you first start taking the medicine or change doses. Do not drive, use machinery, or do anything that may be dangerous until you know how the medicine affects you. Stand or sit up slowly. There are different types of narcotic medicines (opiates) for pain. If you take more than one type at the same time, you may have more side effects. Give your health care provider a list of all medicines you use. Your doctor will tell you how much medicine to take. Do not take more medicine than directed. Call emergency for help if you have problems breathing. The medicine will cause constipation. Try to have a bowel movement at least every 2 to 3 days. If you do not have a bowel movement for 3 days, call your doctor or health director of medicare. Too much acetaminophen can be very dangerous. Do not take Tylenol (acetaminophen) or medicines that contain acetaminophen with this medicine. Many non-prescription medicines contain acetaminophen. Always read the labels carefully. Ketorolac Tromethamine Oral tablet What is this medicine? KETOROLAC (ferdinand toe ROLE ak) is a non-steroidal anti-inflammatory drug (NSAID). It is used for a short while to treat moderate to severe pain, including pain after surgery. It should not be used for more than 5 days. How should I use this medicine? Take this medicine by mouth with a full glass of water. Follow the directions on the prescription label. Take your medicine at regular intervals. Do not take your medicine more often than directed. Do not take more than the recommended dose. A special MedGuide will be given to you by the pharmacist with each prescription and refill. Be sure to read this information carefully each time. Talk to your pipeline dispatcher regarding the use of this medicine in children. While this drug may be prescribed for children as young as 16 years of age for selected conditions, precautions do apply. Patients over 65 years old may have a stronger reaction and need a smaller dose. What side effects may I notice from receiving this medicine? Side effects that you should report to your doctor or health director of medicare as soon as possible: allergic reactions like skin rash, itching or hives, swelling of the face, lips, or tongue black or tarry stools breathing problems changes in vision chest pain high blood pressure nausea or vomiting redness, blistering, peeling or loosening of the skin, including inside the mouth severe abdominal pain slurred speech or weakness on one side of the body unexplained weight gain or swelling unusual bleeding or bruising unusually weak or tired yellowing of eyes or skin Side effects that usually do not require medical attention (report to your doctor or health director of medicare if they continue or are bothersome): diarrhea dizziness headache heartburn What may interact with this medicine? Do not take this medicine with any of the following medications: aspirin and aspirin-like medicines cidofovir methotrexate NSAIDs, medicines for pain and inflammation, like ibuprofen or naproxen pemetrexed probenecid This medicine may also interact with the following medications: alcohol alendronate alprazolam carbamazepine cyclosporine diuretics flavocoxid fluoxetine ginkgo lithium medicines for high blood pressure like enalapril medicines that affect platelets like pentoxifylline medicines that treat or prevent blood clots like heparin, warfarin muscle relaxants phenytoin steroid medicines like prednisone or cortisone thiothixene What if I miss a dose? If you miss a dose, take it as soon as you can. If it is almost time for your next dose, take only that dose. Do not take double or extra doses. Where should I keep my medicine? Keep out of the reach of children. Store at room temperature between 20 and 25 degrees C (68 and 77 degrees F). Throw away any unused medicine after the expiration date. What should I tell my health care provider before I take this medicine? They need to know if you have any of these conditions: asthma bleeding problems like hemophilia cigarette smoker drink more than 3 alcohol containing drinks a day heart disease or circulation problems such as heart failure or leg edema (fluid retention) high blood pressure kidney disease liver disease stomach bleeding or ulcers an unusual or allergic reaction to ketorolac, aspirin, other NSAIDs, other medicines, foods, dyes, or preservatives or trying to get breast-feeding What should I watch for while using this medicine? Tell your doctor or health director of medicare if your pain does not get better. Talk to your doctor before taking another medicine for pain. Do not treat yourself. This medicine does not prevent heart attack or stroke. In fact, this medicine may increase the chance of a heart attack or stroke. The chance may increase with longer use of this medicine and in people who have heart disease. If you take aspirin to prevent heart attack or stroke, talk with your doctor or health director of medicare. Do not take medicines such as ibuprofen and naproxen with this medicine. Side effects such as stomach upset, nausea, or ulcers may be more likely to occur. Many medicines available without a prescription should not be taken with this medicine. This medicine can cause ulcers and bleeding in the stomach and intestines at any time during treatment. Do not smoke cigarettes or drink alcohol. These increase irritation to your stomach and can make it more susceptible to damage from this medicine. Ulcers and bleeding can happen without warning symptoms and can cause . You may get drowsy or dizzy. Do not drive, use machinery, or do anything that needs mental alertness until you know how this medicine affects you. Do not stand or sit up quickly, especially if you are an older patient. This reduces the risk of dizzy or fainting spells. This medicine can cause you to bleed more easily. Try to avoid damage to your teeth and gums when you brush or floss your teeth. You have been given the following additional information: Bladder Infection, Male (Adult) Kidney Stone W/ Colic Ondansetron Oral disintegrating tablet Ciprofloxacin Hydrochloride Oral tablet Hydrocodone Bitartrate, Acetaminophen Oral tablet Ketorolac Tromethamine Oral tablet (Electronically signed by Marilin Mclean A.R.N.P. 09/22/2016 17:18)
--- NOTE | 2016-09-22 17:18 | ED MAR SUMMARY ---
..... Medication Administration Record [facility] [address] [place] [address] Patient: BEN ROBERTS Visit ID: [id number] 56y, M Weight: 115.6 kg Height/Length: 73 in BMI: 33.6 ALLERGIES: No Known Drug Allergy Start 13:40 09/22/2016 Kavitha Melton R.N., Stop 15:17 09/22/2016 Maicol Lord R.N. Medication Administered: IV NS (SALINE), Dose: IV Fluids over 1 hour(s), Rate: 1000 mL/hr, Dispensed: 1000 mL bag, Site: #1 right AC. Medication Ordered: IV NS : initial bolus 1000 mL (1000 mL/hr), then none - (NOW).
--- NOTE | 2016-09-22 17:18 | ED MED RECONCILIATION SUMMARY ---
Patient: BEN ROBERTS Medication Reconciliation Report [facility] VisitID: [id number] [address] [place] [address] 56y, M Registration Date/Time: 09/22/2016 Weight: 115.6 kg Height/Length: 73 in. BMI: 33.6 ALLERGIES: No Known Drug Allergy The patient's Home Medications are listed below: THE FOLLOWING MEDICATIONS NEED TO BE RECONCILED: Azo-Standard Oral 2 tablets, 3x a day Vicodin Oral 5 mg x 2, Left over from a tooth extraction The source(s) of the original Home Medication information: patient patient's spouse The following Medications were given to the patient in the Emergency Department: IV NS IV Fluids bolus 0, then 1000 mL/hr, administered: 09/22/2016 1:40:00 PM The following Medications were prescribed to the patient: Zofran 4 mg: Take 1 orally every six hours as needed for nausea/vomiting. Dispense ten (10). No refills. Substitution is permissible. -- Marilin Mclean A.R.N.P. Cipro 500 mg: take 1 tab orally every 12 hours for 10 days. Dispense twenty (20). No refills. Substitution is permissible. -- Marilin Mclean A.Michelle.N.P. [place] 5 mg / 325 mg tablets: take 1 to 2 orally every 6 hours as needed for pain. Dispense fifteen (15). No refills. Substitution is permissible. -- Marilin Mclean A.Michelle.N.P. Toradol 10 mg tablets: Take 1 tablet orally every 6 hours as needed. Dispense fifteen (15). No refills. Substitution is permissible. -- Marilin Mclean A.Michelle.N.P. Flomax 0.4 mg: take 1 orally every 24 hours. Dispense fifteen (15). No refills. Substitution is permissible. -- Marilin Mclean A.R.N.P.
== END 2016-09-22 15:33 | disposition home or self-care (01) ==
LOC: ED SRH 12:41
DX: N13.6 Pyonephrosis (principal); N30.00 Acute cystitis without hematuria; N50.812 Left testicular pain; E11.9 Type 2 diabetes mellitus without complications; I10 Essential (primary) hypertension
CPT/HCPCS: 90004; 90098; 90100; 95059